=== PATIENT | male | born 1995 | race Caucasian/White ===

== ENCOUNTER 2017-02-08 11:30 | Emergency (ER) | payer OTHER ==
[~2017-02-08] VITALS: Ht 175.3 cm; Wt 90.0 kg
[~2017-02-08 11:30] MED LIST: AMOX875T PO; FLUT1SPR9 EACH NARE; PROMSYP39 PO
[2017-02-08 11:58] VITALS: BP 143/90; PULSE 77; RESP 20; TEMP 99; O2SAT 97
[2017-02-08 12:01] VITALS: BP 143/90; PULSE 77; RESP 20; TEMP 99; O2SAT 97
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
[2017-02-08] MEDS ORDERED: MORPHINE SULFATE 4 MG/ML INJ IV PUSH ONE (12:15)
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
[2017-02-08] MEDS ORDERED: TRAM50TA PO (13:47)
[2017-02-08] MEDS ORDERED: TETANUS/DIPHTHERIA TOXOID ADULT 0.5 ML VIAL IM ONE (14:00)
[2017-02-08] MEDS ORDERED: KETOROLAC TROMETHAMINE 60 MG/2 ML (IM) VIAL IM ONE (14:00)
[2017-02-08 14:50] VITALS: BP 129/82
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
== END 2017-02-08 14:55 | disposition home or self-care (01) ==
LOC: NEPD 11:30
DX: M79.605 Pain in left leg (principal); M25.462 Effusion, left knee; Z23 Encounter for immunization; V29.9XXA Motorcycle rider (driver) (passenger) injured in unspecified traffic accident, initial encounter
CPT/HCPCS: 71010; 72050; 73502; 73564; 90471; 90714; 96372; 96374; 99284; E0113; J1885; J2270